=== PATIENT | male | born 1950 | race Caucasian/White ===

== ENCOUNTER 2016-07-16 07:05 | Day surgery (SDC) | payer BC ==
--- NOTE | ~2016-07-16 | EGD ---
EGD REPORT [facility] [address] [address] NAME: KRISTYN OLVERA : [birth year] STATUS : REG [facility]#: [id number] AGE: 65 ADM/REG DATE : 07/16/16 MR#: [id number] REPORT SERV DATE: 07/16/16 DICTATED BY: DATE: REPORT STATUS : Draft TRANSCRIBED BY: [employer] DATE: 07/16/16 [facility] Patient Name: Kristyn Olvera Date of : 1950 Attending MD: FREDERIC PENG MD Procedure Date No Time: 07/16/2016 Procedure: Upper GI endoscopy Indications: Abdominal pain in the right upper quadrant Referring MD: JACI ALVARADO MD Medicines: as per anesthesia Complications: No immediate complications. Procedure: Pre-Anesthesia Assessment: - ASA Grade Assessment: III - A patient with severe systemic disease. After obtaining informed consent, the endoscope was passed under direct vision. Throughout the procedure, the patient's blood pressure, pulse, and oxygen saturations were monitored continuously. The GIF [id number] was introduced through the mouth, and advanced to the third part of duodenum. The upper GI endoscopy was accomplished without difficulty. The patient tolerated the procedure. Findings: The examined esophagus was normal. Localized mild inflammation characterized by erythema was found in the gastric antrum. Biopsies were taken with a cold forceps for histology. The cardia and gastric fundus were normal on retroflexion. Localized mild inflammation characterized by erythema was found in the duodenal bulb. Impression: - Normal esophagus. - Gastritis. Biopsied. - Duodenitis. Recommendation: - Await pathology results. Procedure Code(s): --- Professional --- 98666, Esophagogastroduodenoscopy, flexible, transoral; with biopsy, single or multiple Diagnosis Code(s): --- Professional --- K29.70, Gastritis, unspecified, without bleeding K29.80, Duodenitis without bleeding R10.11, Right upper quadrant pain EGD REPORT [facility] [address] [place]. [address] NAME: KRISTYN OLVERA : [birth year] STATUS : REG [facility] PAT#: [id number] AGE: 65 ADM/REG DATE : 07/16/16 MR#: [id number] REPORT SERV DATE: 07/16/16 DICTATED BY: DATE: REPORT STATUS : Draft TRANSCRIBED BY: [employer] DATE: 07/16/16 CPT copyright 2013 [employer]. All rights reserved. The codes documented in this report are preliminary and upon it manager review may be revised to meet current compliance requirements. FREDERIC PENG MD 07/16/2016 9:15 AM This report has been signed electronically. Number of Addenda: 0 Note Initiated On: 07/16/2016 8:58 AM Scope Withdrawal Time 0 hours 0 minutes 0 seconds [address] [place] [address]
--- NOTE | ~2016-07-16 | EGD ---
EGD REPORT [facility] [address] [address] NAME: KRISTYN OLVERA : [birth year] STATUS : REG [facility] PAT#: [id number] AGE: 65 ADM/REG DATE : 07/16/16 MR#: [id number] REPORT SERV DATE: 07/16/16 DICTATED BY: FREDERIC PENG DATE: 07/16/16 REPORT STATUS : Draft TRANSCRIBED BY: [employer] DATE: 07/16/16 [facility] Center Patient Name: Kristyn Olvera Date of : 1950 Attending MD: FREDERIC PENG MD Procedure Date No Time: 07/16/2016 Procedure: Colonoscopy Indications: Colon cancer screening in patient at increased risk: Family history of colon polyps Referring MD: JACI ALVARADO MD Medicines: as per anesthesia Complications: No immediate complications. Procedure: Pre-Anesthesia Assessment: - ASA Grade Assessment: III - A patient with severe systemic disease. After I obtained informed consent, the scope was passed under direct vision. Throughout the procedure, the patient's blood pressure, pulse, and oxygen saturations were monitored continuously. The PCF [id number] was introduced through the anus and advanced to the cecum, identified by appendiceal orifice and ileocecal valve. The colonoscopy was performed without difficulty. The patient tolerated the procedure. The quality of the bowel preparation was fair. Findings: The perianal and digital rectal examinations were normal. A sessile polyp was found in the ascending colon. The polyp was 5 mm in size. The polyp was removed with a jumbo cold forceps. Resection and retrieval were complete. A semi-sessile polyp was found in the transverse colon. The polyp was 6 mm in size. The polyp was removed with a jumbo cold forceps. Resection and retrieval were complete. A sessile polyp was found in the rectum. The polyp was 5 mm in size. The polyp was removed with a jumbo cold forceps. Resection and retrieval were complete. Internal hemorrhoids were found during endoscopy and were mild. Impression: - One 5 mm polyp in the ascending colon. Resected and retrieved. - One 6 mm polyp in the transverse colon. Resected and retrieved. - One 5 mm polyp in the rectum. Resected and retrieved. - Internal hemorrhoids. EGD REPORT [address] [address] NAME: KRISTYN OLVERA : [birth year] STATUS : REG [facility] PAT#: [id number] AGE: 65 ADM/REG DATE : 07/16/16 MR#: [id number] REPORT SERV DATE: 07/16/16 DICTATED BY: FREDERIC PENG DATE: 07/16/16 REPORT STATUS : Draft TRANSCRIBED BY: [employer] DATE: 07/16/16 Recommendation: - Await pathology results. - Repeat colonoscopy for surveillance based on pathology results. Procedure Code(s): --- Professional --- 97185, Colonoscopy, flexible, proximal to splenic flexure; with biopsy, single or multiple Diagnosis Code(s): --- Professional --- K62.1, Rectal polyp D12.3, Benign neoplasm of transverse colon D12.2, Benign neoplasm of ascending colon K64.8, Other hemorrhoids Z12.11, Encounter for screening for malignant neoplasm of colon Z83.71, Family history of colonic polyps CPT copyright 2013 [employer]. All rights reserved. The codes documented in this report are preliminary and upon senior ux developer review may be revised to meet current compliance requirements. FREDERIC PENG MD 07/16/2016 9:43 AM This report has been signed electronically. Number of Addenda: 0 Note Initiated On: 07/16/2016 8:55 AM Scope Withdrawal Time 0 hours 15 minutes 39 seconds [address] [place] [address]
[~2016-07-16 07:05] MED LIST: HALF81 PO; KRILLOIL PO; LOP25 PO; MULTIVITAMI1 PO; OTC ALLERGY TABLET PO; OTC VITAMIN C PO; OTC VITAMIN D PO; TUMSROLL PO
== END 2016-07-16 23:59 | disposition home or self-care (01) ==
LOC: DMU 07:05
PROVIDERS: Internal Medicine Gastroenterology
PROC: 0DBL8ZZ Excision of Transverse Colon, Via Natural or Artificial Opening Endoscopic (ICD-10-PCS; 2016-07-16)
PROC: 0DB68ZX Excision of Stomach, Via Natural or Artificial Opening Endoscopic, Diagnostic (ICD-10-PCS; 2016-07-16)
PROC: 0DBK8ZZ Excision of Ascending Colon, Via Natural or Artificial Opening Endoscopic (ICD-10-PCS; principal; 2016-07-16 08:00)
PROC: 0DBP8ZZ Excision of Rectum, Via Natural or Artificial Opening Endoscopic (ICD-10-PCS; 2016-07-16 08:00)
DX: Z12.11 Encounter for screening for malignant neoplasm of colon (principal); D12.2 Benign neoplasm of ascending colon; D12.3 Benign neoplasm of transverse colon; D12.8 Benign neoplasm of rectum; K29.50 Unspecified chronic gastritis without bleeding; K64.8 Other hemorrhoids; K29.80 Duodenitis without bleeding; Z88.0 Allergy status to penicillin; R00.0 Tachycardia, unspecified
CPT/HCPCS: 88305